=== PATIENT | female | born 1995 | race Caucasian/White ===

== ENCOUNTER → 2024-08-15 | Outpatient (CLI) | payer BC ==
[2024-08-15 19:04] LABS: HCT 42.8 % (37.2-46.3); HGB 14.1 g/dL (12.0-15.0); MCH 31.8 pg (27.0-32.0); MCHC 32.9 g/dL (32.0-37.0); MCV 96.6 FL (80.0-97.0); Mean Platelet Volume 9.9 FL (9.5-12.2); NRBC Per 100 WBC 0 X 10*3/uL (0.00-0.01); Platelet Count 313 X 10*3/uL (140-440); RBC 4.43 X 10*6/uL (4.10-5.20); WBC 4.79 X 10*3/uL (4.50-10.00)
[2024-08-15 19:05] LABS: Basophils # (A) 0.04 X 10*3/uL (0.00-0.10); Basophils % (A) 0.8 %; Eosinophils # (A) 0.08 X 10*3/uL (0.04-0.35); Eosinophils % (A) 1.7 %; Lymphocytes # (A) 1.79 X 10*3/uL (0.90-5.00); Lymphocytes % (A) 37.4 %; Monocytes # (A) 0.42 X 10*3/uL (0.20-1.00); Monocytes % (A) 8.8 %; Neutrophils # (A) 2.45 X 10*3/uL (1.80-7.70); Neutrophils % (A) 51.1 %
[2024-08-15 19:54] LABS: % Iron Saturation 34.12 (12.00-45.00); ALT 13 U/L (8-44); AST 23 U/L (13-35); Albumin 4.2 g/dL (3.8-4.9); Albumin/Globulin Ratio 1.91 Ratio (1.60-3.17); Alkaline Phosphatase 117 U/L (41-126); BUN/Creat Ratio 10.89 Ratio (12.00-20.00); Blood Urea Nitrogen 9.8 mg/dL (9.0-27.0); Calcium 9.2 mg/dL (8.7-10.3); Carbon Dioxide 24.7 mmol/L (21.6-31.8); Chloride 105 mmol/L (96-109); Chol/HDL Ratio 2.35 Ratio; Ferritin 65.3 ng/mL (10.0-291.0); Globulin 2.2 g/dL (1.6-3.3); Glucose 85 mg/dL (70-110); Iron 115 UG/DL (50-170); LDL Cholesterol,Calculated 80.4 mg/dL (0.0-131.0); Potassium 4.5 mmol/L (3.5-5.5); Sodium 140 mmol/L (135-145); Total Bilirubin 0.4 mg/dL (0.3-1.2); Total Iron Binding Capacity 337 UG/DL (228-460); Total Protein 6.4 g/dL (6.2-8.2); VLDL Calculation 10.88 mg/dL (5.00-40.00)
== END | disposition home or self-care (01) ==
LOC: LABWHC1 09:35
PROVIDERS: ATTEND Surgery
DX: K91.2 Postsurgical malabsorption, not elsewhere classified (principal); K62.5 Hemorrhage of anus and rectum
CPT/HCPCS: 36415; 80053; 80061; 82306; 82607; 82728; 82746; 83036; 83540; 83550; 83970; 84425; 85025

== ENCOUNTER 2024-10-16 08:01 | Day surgery (SDC) | payer BC ==
[2024-10-13 08:28] VITALS: BMI 31.7
--- NOTE | 2024-10-16 07:25 | P.GSHP ---
History of Present Illness H&P Date: 10/16/24 CHIEF COMPLAINT: Altered bowel habits HISTORY OF PRESENT ILLNESS: The patient is a 28-year-old female who presents for altered bowel habit. Lower endoscopy was offered for further evaluation and management. PAST MEDICAL HISTORY: Please see list. PAST SURGICAL HISTORY: Please see list. MEDICATIONS: Please see list. ALLERGIES: Please see list. SOCIAL HISTORY: No illicit drug use FAMILY HISTORY: No reports of Crohn disease or ulcerative colitis. REVIEW OF ORGAN SYSTEMS: CONSTITUTIONAL: No reports of fevers or chills. PHYSICAL EXAM: VITAL SIGNS: Stable GENERAL: Well-developed pleasant in no acute distress. HEENT: No scleral icterus. Extraocular movements grossly intact. Moist buccal mucosa. NECK: Supple without lymphadenopathy. CHEST: Unlabored respirations. Equal bilateral excursions. CARDIOVASCULAR: Regular rate and rhythm. Distal 2+ pulses. ABDOMEN: Soft, nontender, nondistended. MUSCULOSKELETAL: No clubbing, cyanosis, or edema. ASSESSMENT: 1. Altered bowel habits PLAN: 1. Recommend proceeding with a lower endoscopy Past Medical History Past Medical History: Thyroid Disorder History of Any Multi-Drug Resistant Organisms: None Reported Past Surgical History: Bariatric Surgery Additional Past Surgical History / Comment(s): [place] teeth removed. 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 Past Anesthesia/Blood Transfusion Reactions: No Reported Reaction Smoking Status: Never smoker - Past Family History Father Family Medical History: No Reported History Mother Family Medical History: No Reported History Medications and Allergies Home Medications Medication Instructions Recorded Confirmed Type DULoxetine HCL [Cymbalta] 30 mg PO BID 10/13/24 10/13/24 History Ferrous Sulfate [Iron] 325 mg PO HS 10/13/24 10/13/24 History Levothyroxine Sodium [Synthroid] 100 mcg PO DAILY 10/13/24 10/13/24 History Lisdexamfetamine Dimesylate 30 mg PO QAM 10/13/24 10/13/24 History [Vyvanse] Allergies Allergy/AdvReac Type Severity Reaction Status Date / Time No Known Allergies Allergy Verified 10/13/24 08:20
[2024-10-16] MEDS: LACTATED RINGERS 1,000 ML IV SCH (08:15)
[2024-10-16 08:17] VITALS: TEMP 97
[2024-10-16] MEDS: IV FLUID CONTINUATION 1,000 ML IV ONE (08:28)
[2024-10-16] MEDS ORDERED: PROPOFOL 10 MG/ML 20 ML VIAL IV ONE (08:51)
[2024-10-16 09:38] VITALS: BP 119/73; PULSE 69; RESP 14
--- NOTE | 2024-10-16 09:50 | P.PCN ---
Date of Procedure: 10/16/24 Description of Procedure: PREOPERATIVE DIAGNOSIS: Abnormal stool function Change in bowel habits POSTOPERATIVE DIAGNOSIS: Microscopic colitis Vandana perineum OPERATION: Colonoscopy to the cecum, ileocecal valve and appendiceal orifice. Colonoscopy with random cold forceps biopsies for microscopic colitis SURGEON: Teresa Medley MD. ANESTHESIA: MAC. INDICATIONS: The patient is a 28-year-old female who presents with altered stools including change in bowel habits. Benefits and risks were described and informed consent was obtained. DESCRIPTION OF PROCEDURE: The patient had undergone Suprep. The patient had been brought into the operating room and laid in the left lateral decubitus position. After adequate intravenous sedation, the rectum was examined with 2% lidocaine jelly. No external hemorrhoids were encountered. The rectal tone was within normal limits. No lesions were palpated in the rectal vault. An Olympus colonoscope was advanced until the cecum, ileocecal valve and appendiceal orifice were clearly viewed. The prep was poor. No scattered diverticulosis was encountered. No colonic polyps were found. Cold forceps biopsies randomly were obtained for microscopic colitis. Retroflexion of the scope demonstrated grade 2 internal hemorrhoids without active bleeding or inflammation. The colon was desufflated. The patient had tolerated the procedure well. Withdrawal time was over 6 minutes. FINDINGS: Aronchick preparation quality scale 3-4 (1-5) Internal hemorrhoids, grade 2 External prolapsed hemorrhoids, grade 2 Limited assessment due to poor prep for arteriovenous malformations Limits assessment due to poor prep for adenomatous polyps Cold forceps biopsies obtained for microscopic colitis Vandana of the perineum RECOMMENDATIONS: Lower endoscopy as needed Plan - Discharge Summary Discharge Rx Participant: No New Discharge Prescriptions: Continue Lisdexamfetamine Dimesylate [Vyvanse] 30 mg PO QAM DULoxetine HCL [Cymbalta] 30 mg PO BID Levothyroxine Sodium [Synthroid] 100 mcg PO DAILY Ferrous Sulfate [Iron] 325 mg PO HS Discharge Medication List DULoxetine HCL [Cymbalta] 30 mg PO BID 10/13/24 [History] Ferrous Sulfate [Iron] 325 mg PO HS 10/13/24 [History] Levothyroxine Sodium [Synthroid] 100 mcg PO DAILY 10/13/24 [History] Lisdexamfetamine Dimesylate [Vyvanse] 30 mg PO QAM 10/13/24 [History] Follow up Appointment(s)/Referral(s): Teresa Medley MD [STAFF PHYSICIAN] - 11/07/24 3:00 pm Patient Instructions/Handouts: *Surgery [facility] - (Anesthesia) Discharge Instructions Outpatient Surgery, Colonoscopy (DC) Activity/Diet/Wound Care/Special Instructions: Use cornstarch along perineum after drying/showering Discharge Disposition: HOME SELF-CARE
== END 2024-10-16 10:21 | disposition home or self-care (01) ==
LOC: ORWHC2ENDO 08:01
PROVIDERS: ATTEND Surgery Plastic and Reconstructive Surgery
DX: K63.89 Other specified diseases of intestine (principal); E03.9 Hypothyroidism, unspecified; F90.9 Attention-deficit hyperactivity disorder, unspecified type; Z79.890 Hormone replacement therapy; Z98.84 Bariatric surgery status; Z79.899 Other long term (current) drug therapy
CPT/HCPCS: 81025; 88305; 45380; J2704